=== PATIENT | female | born 1990 | race Caucasian/White ===

== ENCOUNTER 2021-03-04 18:03 | Emergency (ER) | payer OTHER, SELFPAY ==
[2021-03-04 18:11] VITALS: BP 127/74; PULSE 82; RESP 18; TEMP 36.7; O2SAT 99
--- NOTE | 2021-03-04 18:22 | ED.GENADUL_ITS ---
Discharge Plan Disposition Patient Disposition: HOME Condition: Stable Discharge Details Clinical Impression: Ankle sprain Primary Care Provider: Unknown,Unknown ED Provider: Carlitos Dunbar Home Meds and New Rx's Prescriptions: No Action No Known Home Meds RF: 0 Discharge Instructions Instructions: Ankle Sprain (ED) Additional Instructions: X-ray is unremarkable for fracture or dislocation. Wear splint and use crutches as needed, advance activity as tolerated. Rest, elevate, cool compresses every 2 hours for 20 minutes. [id number] Tylenol and/or Motrin as directed for discomfort. Please watch for new or worsening symptoms and return to the ER for any concerns. Please contact your employer, this did happen at work and they may want you to follow-up with a Workmen's Comp. provider, otherwise follow-up with your primary care provider. Stand Alone Forms: Work Release Medical Decision Making 30-year-old female presents with a right ankle injury she sustained at work roughly 2 hours ago when stepping awkwardly. Denies any other injury. Examination is most consistent with sprain however will obtain x-ray to rule out any bony abnormality. Will give 1 g p.o. Tylenol for discomfort. Discussed benign x-ray with patient. Will place patient in a lace up brace and crutches with teaching. She will require a work note. Discussed importance of resting, elevating, cool compresses, [id number] Tylenol and/or Motrin for discomfort. Encouraged to return to the ER for new or worsening symptoms. Medical Records Medical records reviewed: Yes I reviewed the patient's medical records. Imaging Data Radiologic Study: Attestation: I personally reviewed and interpreted this imaging study as follows: Imaging: X-Ray Radiologist's impression: [facility] Preliminary Radiology Report Call: [phone] assistance Online chat: [email or web address] Patient Name: BASSEM BREWSTERAreli Institution Name: [place] [address] Study Type: XR ANKLE COMPLETE MIN 3 VIEWS Ordered As: XR RIGHT ANKLE COMPLETE Date of Dictation: 04 Mar 2021 EDT Date of Exam: 04 Mar 2021 EDT Account Number: Patient : 1990 Patient Location: er Er Medical Technician: Referring Physician: Carlitos DUNBAR This interpretation is based upon the receipt of 3 images. SPEECH PATHOLOGIST (QA) DISCREPANCY? If there is a discrepancy between the preliminary and final interpretation, please notify [facility] via [email or web address]. If you do not have access to our QA portal, call our QA team at [phone] CONFIDENTIALITY STATEMENT This report is intended only for the use of the referring physician, and only in accordance with law, If you received this in error, call [phone] Page 1 of 1 PROCEDURE INFORMATION: Exam: XR Right Ankle Exam date and time: 03/04/2021 6:23 PM Age: 30 years old Clinical indication: Injury or trauma; Fall; Blunt trauma; Ankle; Right TECHNIQUE: Imaging protocol: XR Right ankle. Views: 3 or more views. COMPARISON: No relevant prior studies available. FINDINGS: Bones/joints: There is no evidence of acute fracture. There is no evidence of joint malalignment or dislocation. Soft tissues: There are no soft tissue masses or fluid collections. IMPRESSION: 1. No evidence of acute fracture. 2. No evidence of acute dislocation. Thank you for allowing us to participate in the care of your patient. Dictated and Authenticated by: Maximo Jacinto DO 03/04/2021 7:02 PM Eastern Time ([place] & [place]) HPI General Mode of arrival: ambulatory . Date/Time Provider Initiated Documentation: 03/04/21 18:15 . Limitations to Documentation: no limitations . Information obtained by: patient . HPI Narrative: This is a 30-year-old female, denies significant past medical history, reports that approximately 2 hours ago while at work she stepped awkwardly twisting her right ankle. Reports the pain is moderate at rest worse with movement. Denies any other injury. Denies numbness, tingling, weakness. Denies taking any medications prior to arrival. Related Data Home Medications Medication Instructions Recorded Confirmed Unknown [No Known Home Meds] 03/04/21 03/04/21 Allergies Allergy/AdvReac Type Severity Reaction Status Date / Time No Known Allergies Allergy Unverified 03/04/21 18:17 General Stated Complaint: Orthopedic SERENA: 4 Review of Systems Musculoskeletal Musculoskeletal: Denies deformity, Reports arthralgias, Reports joint swelling, Denies numbness, Reports stiffness and Denies tingling Integumentary/Breasts Skin/Breast: Denies rash Neurologic Neurologic: Denies numbness and Denies tingling [facility] Social History Smoking/Tobacco Use Status: Never Smoking risk assessment performed?: Yes Alcohol Intake: current Alcohol Intake frequency: holidays/special occasions only Drug use: Never Do you feel safe at home: Yes Do you feel safe in your relationship?: Yes Exam Const General: cooperative, healthy appearing, comfortable and no acute distress Orientation: alert and awake HENOK Head: normal to inspection, normocephalic and atraumatic Eyes General: appearance normal, both eyes and all related structures Conjunctivae: conjunctivae normal Neck Neck: normal visual inspection, trachea midline and supple Resp Effort & Inspection: normal respiratory effort and able to speak in complete sentences Cardio Rate: regular rate Rhythm: regular rhythm Skin General skin exam: no rashes or lesions noted Neuro General: patient alert, patient awake, moves all extremities and no focal motor deficits Cognition: normal cognition Speech: speech normal Gait: antalgic Motor: muscle tone normal throughout Sensory Exam: no sensory deficits noted Extrem General: full ROM and capillary refill normal Right lower extremity: full ROM, normal capillary refill, hip/thigh Details: normal to inspection; no tenderness and no swelling, knee Details: normal to inspection and normal ROM; no tenderness and no swelling, lower leg Details: normal to inspection; no tenderness, ankle Details: tenderness (Diffuse mild worse lateral), swelling (Diffuse, mild, worse lateral) and normal ROM and foot Details: normal capillary refill, normal to inspection and toes with normal ROM; no tenderness Psych Appearance: grossly normal Mental Status: mental status grossly normal Course Vital Signs Vital signs: Vital Signs Temperature 36.7 C 03/04/21 18:11 Pulse 82 03/04/21 18:11 Respiratory Rate 18 03/04/21 18:11 Blood Pressure 127/74 03/04/21 18:11 Pulse Oximetry 99 03/04/21 18:11 Temperature 36.7 C 03/04/21 18:11 Temperature Source Temporal Artery Scan 03/04/21 18:11 Pulse 82 03/04/21 18:11 Respiratory Rate 18 03/04/21 18:11 Respiratory Effort Non-Labored 03/04/21 18:15 Blood Pressure 127/74 03/04/21 18:11 Blood Pressure Position Supine 03/04/21 18:11 Pulse Oximetry 99 03/04/21 18:11 Oxygen Delivery Method Room Air 03/04/21 18:11 Oxygen Flow Rate 0 03/04/21 18:11 Pain Level 7 03/04/21 18:18
[2021-03-04] MEDS: Acetaminophen 500 MG TAB 1000 MG PO (18:30)
--- NOTE | 2021-03-04 18:38 | DI.RAD_ITS ---
Exam(s) XR ANKLE RT COMPLETE EXAM: XR ANKLE RT COMPLETE CLINICAL HISTORY: twist injury. TECHNIQUE: 2D digital imaging was performed. COMPARISON: No exams were available for comparison FINDINGS: BONES: No acute fracture is present. No bony destructive lesion is seen. There is a lucency in the m edial aspect of the talar dome with an associated bony fragment consistent with an osteochondral defe ct. JOINTS: The ankle mortise is normally aligned. SOFT TISSUE: Normal. IMPRESSION: 1. No acute fracture or dislocation. 2. Osteochondral defect of the talar dome. DATA REPOSITORY: RADIATION DOSE DELIVERED:
--- NOTE | 2021-03-04 19:03 | DI.VRAD_ITS ---
PROCEDURE INFORMATION: Exam: XR Right Ankle Exam date and time: 03/04/2021 6:23 PM Age: 30 years old Clinical indication: Injury or trauma; Fall; Blunt trauma; Ankle; Right TECHNIQUE: Imaging protocol: XR Right ankle. Views: 3 or more views. COMPARISON: No relevant prior studies available. FINDINGS: Bones/joints: There is no evidence of acute fracture. There is no evidence of joint malalignment or dislocation. Soft tissues: There are no soft tissue masses or fluid collections. IMPRESSION: 1. No evidence of acute fracture. 2. No evidence of acute dislocation. Dictated and Authenticated by: Maximo Jacinto MD. Ordering:LUZ ELENA Urbina MD
== END 2021-03-04 19:49 | disposition home or self-care (01) ==
PROVIDERS: Emergency Provider Physician Assistant
DX: S93.491A Sprain of other ligament of right ankle, initial encounter (principal); X50.1XXA Overexertion from prolonged static or awkward postures, initial encounter; Y99.0 Civilian activity done for income or pay
CPT/HCPCS: 29515; 99283; 73610